=== PATIENT | male | born 1965 | race Caucasian/White ===

== ENCOUNTER → 2017-09-01 | Outpatient (CLI) | payer MEDICAID | END | disposition home or self-care (01) | LOC: RAD 14:44 | PROVIDERS: ATTEND Family Medicine | DX: M16.0 Bilateral primary osteoarthritis of hip (principal); M75.32 Calcific tendinitis of left shoulder; R22.1 Localized swelling, mass and lump, neck; G89.29 Other chronic pain | CPT/HCPCS: 73523 ==